=== PATIENT | male | born 1955 | race Two or more races ===

== ENCOUNTER 2024-07-28 04:11 | Day surgery (SDC) | payer MEDICARE, OTHER ==
[2024-07-25 11:03] VITALS: BMI 23.6
[2024-07-28] MEDS ORDERED: PROPOFOL 20 ML ONE (09:07)
[2024-07-28] MEDS ORDERED: MIDAZOLAM HCL 2 MG/2 ML SINGLE DOSE VIAL ONE (09:07)
[2024-07-28] MEDS ORDERED: VANCOMYCIN 1,000 MG VIAL (RESTRICTED TO ID ONLY) ONE (09:13)
[2024-07-28] MEDS ORDERED: GENTAMICIN SO4 80 MG/2 ML VIAL ONE ×2 (09:13→09:59)
[2024-07-28] MEDS: VANCOMYCIN 1,000 MG VIAL (RESTRICTED TO ID ONLY) IVPB ONE (09:50)
[2024-07-28] MEDS: GENTAMICIN 80MG PREMIX BAG IVPB ONE (09:50)
[2024-07-28] MEDS ORDERED: oxyCODONE HCL 5 MG TABLET PO PRN (11:33)
[2024-07-28] MEDS ORDERED: ONDANSETRON 4 MG/2 ML VIAL IVPUSH PRN (11:33)
[2024-07-28] MEDS ORDERED: LACTATED RINGERS SOLUTION 1,000 ML IV SCH (11:45)
[2024-07-28 13:10] VITALS: RESP 16
[2024-07-28 13:14] VITALS: TEMP 97.5
[2024-07-28 14:12] VITALS: BP 129/75; PULSE 70
== END 2024-07-28 14:54 | disposition home or self-care (01) ==
LOC: JASU-SURG 04:11
PROVIDERS: ATTEND Urology
PROC: 0VUS0JZ Supplement Penis with Synthetic Substitute, Open Approach (ICD-10-PCS; principal; 2024-07-28 09:00)
DX: N52.8 Other male erectile dysfunction (principal)
CPT/HCPCS: 54405; C1813; 94760

== ENCOUNTER 2024-07-29 10:00 | Emergency (ER) | payer MEDICARE, OTHER ==
[2024-07-29 11:48] VITALS: BP 123/70; PULSE 112; RESP 20; TEMP 99.2; BMI 22.6
== END 2024-07-29 11:16 | disposition home or self-care (01) ==
LOC: JER 10:00
DX: N99.89 Other postprocedural complications and disorders of genitourinary system (principal)
CPT/HCPCS: 99283-25